=== PATIENT | female | born 1975 | race Caucasian/White ===

== ENCOUNTER 2022-02-03 09:08 | Outpatient (CLI) | payer OTHER | END 2022-02-03 09:09 | disposition home or self-care (01) | LOC: CSHMRI 09:08 | PROVIDERS: ATTEND Family Medicine | DX: M23.91 Unspecified internal derangement of right knee (principal); M23.92 Unspecified internal derangement of left knee; M17.0 Bilateral primary osteoarthritis of knee; M22.41 Chondromalacia patellae, right knee; M67.461 Ganglion, right knee; M71.22 Synovial cyst of popliteal space [Baker], left knee ==

== ENCOUNTER 2024-07-08 13:32 | Outpatient (CLI) | payer OTHER | END 2024-07-08 13:33 | disposition home or self-care (01) | LOC: CSHCT 13:32 | PROVIDERS: ATTEND Internal Medicine Cardiovascular Disease | DX: I95.0 Idiopathic hypotension (principal); R55 Syncope and collapse | CPT/HCPCS: 70450 ==